=== PATIENT | male | born 1955 | race Two or more races ===

== ENCOUNTER 2022-11-27 08:33 | Inpatient (IN) | payer OTHER ==
[2022-11-20 09:46] LABS: PH,URINE 7.5 (5.0-8.0); URINE APPEARANCE Clear; URINE BILIRRUBIN Negative (NEGATIVE); URINE BLOOD Negative; URINE COLOR Yellow; URINE GLUCOSE Negative (NEGATIVE); URINE LEUKOCYTE Negative; URINE NITRATE Negative; URINE PROTEIN Negative (NEGATIVE); URINE UROBILINOGEN 0.2 E.U./dl
[2022-11-20 09:48] LABS: URINE BACTERIA 7.2 uL (0.0-1933); URINE RBC 5.6 uL (0.0-20.8); URINE WBC 1.8 uL (0.0-23.2)
[2022-11-20 09:49] LABS: URINE EPITHELIAL CELLS 0.7 uL (0.0-38.8)
[2022-11-20 09:51] LABS: HEMATOCRIT 39.9 % (39.0-48.0); HEMOGLOBIN 13.5 g/dL (13-16.00); MEAN CELL VOLUME 86.5 fL (80.0-100.00); MEAN CORPUSCULAR HEMOGLOBIN 29.2 pg (27.00-32.0); MEAN CORPUSCULAR HGB CONC 33.8 g/dl (32.0-36.0); PLATELET COUNT 263 K/uL (150-450); RED BLOOD COUNT 4.62 M/uL (4.00-6.00); RED CELL DISTRIBUTION WIDTH 14.6 % (11.5-14.5)
[2022-11-20 10:26] LABS: INR 0.96; PARTIAL THROMBOPLASTIN TIME 27.9 SECONDS (22.0-34.0); PROTHROMBIN TIME 10.1 SECONDS (9.0-11.5)
[2022-11-20 10:31] LABS: BILIRUBIN TOTAL 0.43 mg/dL (0.3-1.2); CALCIUM 9.6 mg/dL (8.5-10.1); CREATININE SERUM 0.92 mg/dL (0.70-1.30); GFR 81.81; GLOBULINA 3.3 G/DL (2.4-3.5); PHOSPHOROUS 2.8 mg/dL (2.5-4.9); POTASSIUM 4.54 mEq/L (3.5-5.1); TOTAL PROTEIN 7.3 gm/dL (6.4-8.2)
[~2022-11-27] VITALS: Ht 170.2 cm; Wt 63.0 kg
[2022-11-28 13:25] LABS: HEMATOCRIT 39.8 % (39.0-48.0); HEMOGLOBIN 13.3 g/dL (13-16.00); MEAN CORPUSCULAR HEMOGLOBIN 28.7 pg (27.00-32.0); MEAN CORPUSCULAR HGB CONC 33.3 g/dl (32.0-36.0); PLATELET COUNT 257 K/uL (150-450); RED BLOOD COUNT 4.62 M/uL (4.00-6.00); RED CELL DISTRIBUTION WIDTH 14.7 % (11.5-14.5)
[2022-11-28 14:06] LABS: ALBUMIN 3.5 gm/dL (3.4-5.0); CALCIUM 9.2 mg/dL (8.5-10.1); CREATININE SERUM 0.94 mg/dL (0.70-1.30); GFR 79.81; PHOSPHOROUS 2.7 mg/dL (2.5-4.9); POTASSIUM 4.09 mEq/L (3.5-5.1)
[2022-11-30] MEDS ORDERED: NEURONTIN300 MG PO (14:57)
[2022-11-30] MEDS ORDERED: ACETAMINOPHEN500 M2 PO (14:57)
== END 2022-11-30 17:17 | disposition home or self-care (01) | DRG 330 ==
LOC: CIR.AMB 08:33 → SURH 16:07
PROVIDERS: ADMIT Surgery; ATTEND Surgery
PROC: 07BB4ZZ Excision of Mesenteric Lymphatic, Percutaneous Endoscopic Approach (ICD-10-PCS; 2022-11-27)
PROC: 0DTF4ZZ Resection of Right Large Intestine, Percutaneous Endoscopic Approach (ICD-10-PCS; principal; 2022-11-27 07:00)
DX: C18.0 Malignant neoplasm of cecum (principal); K92.1 Melena; K64.4 Residual hemorrhoidal skin tags; R59.0 Localized enlarged lymph nodes

== ENCOUNTER → 2023-01-07 08:35 | Outpatient (CLI) | payer OTHER ==
[~2023-01-07 08:35] MED LIST: ACETAMINOPHEN500 M2 PO; NEURONTIN300 MG PO
[2023-01-07 09:19] LABS: HEMATOCRIT 41.3 % (39.0-48.0); HEMOGLOBIN 13.6 g/dL (13-16.00); MEAN CELL VOLUME 88.2 fL (80.0-100.00); MEAN CORPUSCULAR HEMOGLOBIN 29.1 pg (27.00-32.0); PLATELET COUNT 281 K/uL (150-450); RED BLOOD COUNT 4.69 M/uL (4.00-6.00); RED CELL DISTRIBUTION WIDTH 14.8 % (11.5-14.5)
[2023-01-07 09:37] LABS: URINE APPEARANCE Clear; URINE BILIRRUBIN Negative (NEGATIVE); URINE BLOOD Negative; URINE COLOR Yellow; URINE GLUCOSE Negative (NEGATIVE); URINE LEUKOCYTE Negative; URINE NITRATE Negative; URINE PROTEIN Negative (NEGATIVE); URINE UROBILINOGEN 0.2 E.U./dl
[2023-01-07 09:42] LABS: URINE RBC 3.3 uL (0.0-20.8); URINE WBC 3.5 uL (0.0-23.2)
[2023-01-07 09:44] LABS: ALBUMIN 4.1 gm/dL (3.4-5.0); CREATININE SERUM 0.92 mg/dL (0.70-1.30); GFR 81.81; PHOSPHOROUS 2.8 mg/dL (2.5-4.9); POTASSIUM 4.24 mEq/L (3.5-5.1)
[2023-01-07 09:51] LABS: URINE EPITHELIAL CELLS 0.4 uL (0.0-38.8)
[2023-01-07 10:17] LABS: INR < 0.93; PARTIAL THROMBOPLASTIN TIME 27.2 SECONDS (22.0-34.0); PROTHROMBIN TIME 9.8 SECONDS (9.0-11.5)
== END | disposition home or self-care (01) ==
LOC: LAB 08:35
PROVIDERS: ATTEND Surgery
DX: C18.0 Malignant neoplasm of cecum (principal); R59.0 Localized enlarged lymph nodes; K92.1 Melena; K64.4 Residual hemorrhoidal skin tags

== ENCOUNTER 2023-01-11 06:49 | Day surgery (SDC) | payer OTHER ==
[2023-01-11] MEDS ORDERED: TRAM1TAB98 PO (08:59)
== END 2023-01-11 12:35 | disposition home or self-care (01) ==
LOC: CIR.AMB 06:49
PROVIDERS: ATTEND Surgery
DX: C18.0 Malignant neoplasm of cecum (principal); K64.4 Residual hemorrhoidal skin tags; I10 Essential (primary) hypertension; Z20.822 Contact with and (suspected) exposure to COVID-19